=== PATIENT | male | born 1955 | race Caucasian/White ===

== ENCOUNTER 2016-10-16 02:18 | Inpatient (IN) ==
--- NOTE | 2016-10-11 14:28 | EKG Report ---
Test Performed on : 10/11/2016 2:07:57 PM Test Reason : PAT Blood Pressure : / mmHG Vent. Rate : 068 BPM Atrial Rate : 068 BPM P-R Int : 204 ms QRS Dur : 116 ms QT Int : 400 ms P-R-T Axes : 049 -19 038 degrees QTc Int : 425 ms Normal sinus rhythm. with sinus arrhythmia. Cannot rule out Anterior infarct , age undetermined Abnormal ECG No previous ECGs available Confirmed by Moshe DORADO, Craig Bee ([id number]) on 10/11/2016 4:18:43 PM
[2016-10-11 15:06] LABS: MANUAL DIFF NEEDED? NO; URINE MICRO REVIEW NEEDED? NO; URINE SOURCE CLEAN CATCH
[2016-10-11 15:14] LABS: BASO% 0.4 % (0.0-0.8); EOS# 0.12 X1000 (0.0-0.7); EOS% 1.6 % (0.0-10.0); HEMATOCRIT 43.7 % (42.0-52.0); HEMOGLOBIN 14.9 g/dL (14.0-18.0); IMM GRAN# 0.02 X1000 (0.0-0.04); IMM GRAN% 0.3 % (0.0-0.5); LYMPH# 1.77 X1000 (1.2-3.4); LYMPH% 23.9 % (20.5-51.1); MCH 31.7 PG (27-31); MCHC 34.1 g/dL (33-37); MONO% 5.4 % (1.7-9.3); MPV 9.7 FL (7.4-10.4); NEUT% 68.4 % (42.2-75.2); PLT 303 X1000 (130-400)
[2016-10-11 15:23] LABS: BILIRUBIN URINE NEGATIVE (NEGATIVE); BLOOD URINE NEGATIVE (NEGATIVE); COLOR YELLOW; GLUCOSE URINE NEGATIVE (NEGATIVE); LEUKOCYTES URINE NEGATIVE (NEGATIVE); NITRITE URINE NEGATIVE (NEGATIVE); PROTEIN URINE TRACE mg/dL (NEGATIVE); SP GRAVITY URINE 1.021; TURBIDITY URINE CLEAR (CLEAR); UROBILINOGEN URINE 2 mg/dL (NORMAL)
[2016-10-11 15:24] LABS: UR EPITHELIAL CELLS <10 /HPF (<10); URINE BACTERIA NEGATIVE /HPF; URINE RBC <10 /HPF (<10); URINE WBC <10 /HPF (<10)
[2016-10-11 15:27] LABS: INR 0.99; PROTIME 10.4 Seconds (9.2-11.7); PTT 26.4 Seconds (22.0-36.0)
[2016-10-11 15:36] LABS: AGAP 10; BUN 13 mg/dL (8-22); CHLORIDE 100 mmol/L (98-107); COSMO 276; POTASSIUM 3.9 mmol/L (3.5-5.1); SODIUM 138 mmol/L (136-145); TCO2 28 mmol/L (25-35)
[2016-10-16] MEDS ORDERED: COLACE ONE (07:32)
[2016-10-16] MEDS ORDERED: REGLAN ONE (07:32)
[2016-10-16] MEDS ORDERED: KEFZOL 2 GM/D5W 2 GM/50 ML IVPB ONE (07:32)
[2016-10-16] MEDS ORDERED: PEPCID ONE (07:32)
[2016-10-16] MEDS ORDERED: LYRICA ONE (07:32)
[2016-10-16] MEDS ORDERED: LR 1,000 ML ONE ×2 (07:32→10:35)
[2016-10-16] MEDS ORDERED: SODIUM CHLORIDE 0.9% ONE (07:34)
[2016-10-16] MEDS ORDERED: VANCOMYCIN ONE (07:34)
[2016-10-16] MEDS ORDERED: CYKLOKAPRON 1,000 MG/NS 1,000 MG/100 ML IVPB ONE ×2 (07:34→07:35)
[2016-10-16] MEDS ORDERED: MARCAINE 0.25% PF/EPI 1:200,000 ONE (07:34)
[2016-10-16] MEDS ORDERED: TORADOL ONE (07:34)
[2016-10-16] MEDS ORDERED: EXPAREL 1.3% ONE (07:35)
[2016-10-16] MEDS ORDERED: NEOSPORIN G.U. IRRIGANT ONE (07:35)
[2016-10-16 10:13] LABS: URINE MICRO REVIEW NEEDED? NO; URINE SOURCE CATH
[2016-10-16 10:18] LABS: BILIRUBIN URINE NEGATIVE (NEGATIVE); BLOOD URINE NEGATIVE (NEGATIVE); COLOR YELLOW; GLUCOSE URINE NEGATIVE (NEGATIVE); LEUKOCYTES URINE NEGATIVE (NEGATIVE); NITRITE URINE NEGATIVE (NEGATIVE); PROTEIN URINE NEGATIVE (NEGATIVE); SP GRAVITY URINE 1.013; TURBIDITY URINE HAZY (CLEAR); UR EPITHELIAL CELLS <10 /HPF (<10); URINE BACTERIA NEGATIVE /HPF; URINE RBC <10 /HPF (<10); URINE WBC <10 /HPF (<10); UROBILINOGEN URINE NORMAL (NORMAL)
[2016-10-16] MEDS ORDERED: VERSED ONE (10:28)
[2016-10-16] MEDS ORDERED: FENTANYL ONE (10:28)
[2016-10-16] MEDS ORDERED: DIPRIVAN 1% ONE (10:29)
[2016-10-16] MEDS ORDERED: NS 1,000 ML ONE (10:33)
[2016-10-16] MEDS ORDERED: DECADRON ONE (10:35)
[2016-10-16] MEDS ORDERED: OFIRMEV 1000 MG/ISOTONIC SOLN 1,000 MG/100 ML BOTTLE ONE (10:35)
[2016-10-16] MEDS ORDERED: XYLOCAINE-MPF 2% ONE (10:35)
[2016-10-16] MEDS ORDERED: ROBINUL ONE (10:35)
[2016-10-16] MEDS ORDERED: MILK OF MAGNESIA PO PRN (11:42)
[2016-10-16] MEDS ORDERED: ZOFRAN IV PRN (11:42)
[2016-10-16] MEDS ORDERED: MORPHINE IV PRN (11:42)
[2016-10-16] MEDS ORDERED: KEFZOL 1 GM/D5W 1 GM/50 ML IVPB IV SCH (12:00)
[2016-10-16] MEDS: ULTRAM PO SCH ×2 (12:22→18:21)
[2016-10-16] MEDS: OXY IR PO PRN (12:23)
--- NOTE | 2016-10-16 12:36 | OPERATIVE NOTE ---
PROCEDURE DATE: 10/16/2016 PREOPERATIVE DIAGNOSIS: Right knee degenerative joint disease. POSTOPERATIVE DIAGNOSIS: Right knee degenerative joint disease. PROCEDURE: Right total knee arthroplasty using a [employer] surgical size 8 femoral component, size 8 tibial base plate, a 10 mm articular insert, and a 35 mm patellar component. ANESTHESIA: General. SURGEON: Jamar Trevino MD MECHANICAL SUPERVISOR: Noni Gates PA-C COMPLICATIONS: None. BLOOD LOSS: Minimal. TOURNIQUET TIME: Approximately an hour and a half. DRAINS: Hemovac x1. DESCRIPTION OF PROCEDURE: The patient was brought to the operative suite and placed in supine position. After successful administration of general anesthesia, a well-padded tourniquet was placed on the right proximal thigh. The right lower extremity was prepped and draped in the usual sterile fashion. The leg was exsanguinated. Tourniquet insufflated to 350 torr. A longitudinal made beginning at the superior pole of the patella and extended distally to the tibia tuberosity. It was dissected sharply through the skin. Full-thickness skin flaps were elevated medially and laterally. A medial arthrotomy was made with a vastus snip. The medial capsule was elevated off the medial tibial plateau. The prepatellar fat pad, ACL, PCL, medial meniscus, lateral meniscus were excised. A drill was entered in the center of the distal femur. An intramedullary guide was placed. Distal cutting block was pinned into place, distal cuts made with an oscillating saw. The femur was sized to size 8, a size 8 cutting block was pinned in place. Anterior cuts, chamfer cuts, and posterior condylar cuts were made with the oscillating saw. Marginal osteophytes removed with a rongeur. A box cutting block was pinned into place. A box cut was made a box osteotome and oscillating saw. Posterior condyle osteophytes were removed with curved osteotome and a rongeur. Attention was then directed to the box. The box cutting block was pinned into place. A box cut was made a box osteotome and oscillating saw. Attention then directed to the tibia. A drill was entered in the center of the tibia. An intramedullary guide was placed. Alignment checked with drop keagan, referencing off the anterior cortex of the tibia and the second ray of the foot, and taking 4 mm off the low side of the tibia, which in this case was medially. The tibial cutting block was pinned into place. The articular surface of the tibial plateau was removed with an oscillating saw. The sclerotic bone medially was drilled and then the flexion- extension gaps were checked and balanced at 10 mm. The tibia sized to size 8, a size 8 guide was used for the fin punch. The tibial trial, femoral trial, and articular insert were placed, taken through range of motion and found to have excellent alignment, balancing, and range of motion. Attention was then directed to the patella, 9 mm of the articular surface of the patella removed with oscillating saw. The patella sized to a size 35. A 35 guide was used to drill peg holes. The lateral facet was chamfered 30-45 degrees. Patella trial was placed, and taken through range of motion found to have excellent patella tracking. All trials were then removed. The knee was copiously irrigated and dried, being certain all bone debris was removed. The tibial component, femoral component, patellar component were cemented into place, excess cement being removed with a [place]. Once the cement had hardened, excess cement was again removed with an osteotome. The knee was again copiously irrigated and dried, being certain all bone and cement debris were removed. The trial articular insert was removed. The knee was copiously infiltrated with Exparel, including posterior capsule, anterior capsule, medial and lateral collateral ligaments, and the anterior musculature, and subcutaneous tissue. The definitive 10 mm articular insert was locked into place. The knee was again taken through range of motion. Again, found to have excellent alignment, balancing, range of motion, patellar tracking. A drain was placed exiting superior laterally and then the medial arthrotomy was closed with a running 0 V-Loc. The skin edge approximated with 2-0 Vicryl. Skin was closed with Prineo. An Ge wrap and cooling blanket were then applied. The patient tolerated the procedure well without complication. At the end of the procedure, all counts correct x2. The patient was transferred to the recovery room in stable condition. cc: Jamar Trevino MD
[2016-10-16] MEDS ORDERED: AMBIEN PO PRN (13:50)
[2016-10-16] MEDS: TYLENOL PO SCH ×2 (15:33→21:08)
[2016-10-16] MEDS: KEFZOL 1 GM/D5W 1 GM/50 ML IVPB IV SCH ×2 (15:33→23:53)
[2016-10-16] MEDS ORDERED: PROCARDIA ER PO SCH (21:00)
[2016-10-16] MEDS ORDERED: ABILIFY PO SCH (21:00)
[2016-10-16] MEDS: PERIDEX MT SCH (21:05)
[2016-10-16] MEDS: NS 1,000 ML IV SCH ×2 (21:05→23:43)
[2016-10-16] MEDS: COLACE PO SCH (21:06)
[2016-10-16] MEDS: ESKALITH PO SCH (21:06)
[2016-10-16] MEDS: LYRICA PO SCH (21:07)
[2016-10-17] MEDS: ULTRAM PO SCH ×3 (00:25→12:51)
[2016-10-17] MEDS ORDERED: XARELTO PO SCH (06:00)
[2016-10-17 06:10] LABS: HEMATOCRIT 34.3 % (42.0-52.0); HEMOGLOBIN 11.7 g/dL (14.0-18.0)
[2016-10-17] MEDS: TYLENOL PO SCH ×2 (06:24→12:51)
[2016-10-17 06:27] LABS: AGAP 9; BUN 13 mg/dL (8-22); CALCIUM 9.1 mg/dL (8.8-10.2); CHLORIDE 105 mmol/L (98-107); COSMO 283; SODIUM 142 mmol/L (136-145); TCO2 28 mmol/L (25-35)
[2016-10-17] MEDS: NS 1,000 ML IV SCH (06:46)
[2016-10-17] MEDS ORDERED: SYNTHROID PO SCH (07:00)
[2016-10-17] MEDS: PERIDEX MT SCH (08:26)
[2016-10-17] MEDS: LYRICA PO SCH (08:27)
[2016-10-17] MEDS: ESKALITH PO SCH (08:27)
[2016-10-17] MEDS: COLACE PO SCH (08:28)
--- NOTE | 2016-10-17 08:32 | PROGRESS NOTE ---
DATE: 10/17/2016 SUBJECTIVE: Mr. Quinn is a 61-year-old male who is postoperative day 1 from a right total knee arthroplasty. He has no new complaints. OBJECTIVE: General: He is a well developed, well nourished, male. He is alert and oriented, and cooperative with the examination. Vital Signs: Stable and he is afebrile. Skin: His dressing is clean, dry, and intact without signs of infection. Extremities: His leg is neurovascularly intact. His calf is soft and intact sensation to light touch. Laboratory Data: His hemoglobin is 11.7 and his hematocrit is 34.3. He had 100 mL of output from his drain. He walked 100 feet yesterday with physical therapy. ASSESSMENT: Postoperative day 1 from a right total knee arthroplasty. PLAN: We will continue working with him with physical therapy. We will plan to send him to rehab later this week. Dictated by ABAD Chester for Jamar Trevino MD cc: ABAD Chester MD
[2016-10-17] MEDS ORDERED: CELEBREX PO SCH (09:00)
[2016-10-17] MEDS ORDERED: DECADRON IV ONE (09:00)
[2016-10-17] MEDS ORDERED: PEPCID PO SCH (09:00)
[2016-10-17] MEDS ORDERED: MIRALAX PO SCH (09:00)
[2016-10-17 11:42] VITALS: BP 113/65
[2016-10-17] MEDS: OXY IR PO PRN ×2 (12:51→16:21)
--- NOTE | 2016-10-17 20:26 | DISCHARGE SUMMARY ---
ADMISSION DATE: 10/16/2016 DISCHARGE DATE: 10/17/2016 DISCHARGE DIAGNOSIS: Right knee degenerative joint disease status post right total knee arthroplasty. DISCHARGE MEDICATIONS: See discharge medication list. DISPOSITION: This patient is discharged home with home health. DISCHARGE INSTRUCTIONS: Total knee arthroplasty protocol and instructed to return to see Dr. Trevino next . HOSPITAL COURSE: On the day of admission, patient underwent a right total knee arthroplasty. His postoperative course was unremarkable. At discharge, he is afebrile tolerating a regular diet and ambulating well with physical therapy. His wound is clean, dry, and intact without sign of infection. He is discharged home with home health in stable condition with instructions to follow up as described above. Dictated by ABAD Chester for Jamar Trevino MD cc: ABAD Chester MD
== END 2016-10-17 17:42 | disposition home health service (06) ==
LOC: SURHOLD 02:18 → 4N 08:23
PROVIDERS: ADMIT Orthopaedic Surgery; ATTEND Orthopaedic Surgery